=== PATIENT | female | born 1980 | race Hispanic/Latino ===

== ENCOUNTER 2018-10-18 18:29 | Emergency (ER) | payer OTHER ==
[2018-10-18 19:58] LABS: Absolute Lymphocytes (CBC) 2.8 K/uL (0.7-4.9); Basophils % 0.5 % (0-1.3); Eosinophils % 1.2 % (0-4.4); MPV 8.2 fL (7.6-11.3); Monocytes % 9.5 % (3.3-12.3); RBC Red Blood Cell Count 4.55 M/uL (3.86-4.86)
[2018-10-18 20:02] LABS: ALT/SGPT 38 U/L (12-78); AST/SGOT 10 U/L (15-37); Albumin 3.6 g/dL (3.4-5.0); Alkaline Phosphatase 83 U/L (45-117); BUN Blood Urea Nitrogen 15 mg/dL (7-18); Bicarbonate 30 mmol/L (21-32); Bilirubin Direct < 0.1 mg/dL (0-0.2); Bilirubin Total 0.3 mg/dL (0.2-1.0); Glucose Level 85 mg/dL (74-106); Lipase 161 U/L (73-393); Protein, Total 8.1 g/dL (6.4-8.2); Sodium Level 139 mmol/L (136-145)
[2018-10-18 20:10] LABS: Urine Blood 2+ (NEG); Urine Glucose NEGATIVE (NEG); Urine Protein NEGATIVE (NEG); Urine Specific Gravity 1.025 (1.005-1.030)
[2018-10-18 20:20] LABS: Urine Bacteria 20-50 /HPF (<20); Urine Culture Reflex Order REFLEXED; Urine RBC 20-50 /HPF (NONE SEEN)
--- NOTE | 2018-10-18 20:47 | RAD REPORT ---
EXAM DESCRIPTION: US - Abdomen Exam Limited - 10/18/2018 8:42 pm CLINICAL HISTORY: Abdominal pain COMPARISON: None. FINDINGS: No gallstones, sludge or other abnormalities within the gallbladder lumen. There is no wal l thickening or pericholecystic fluid. No common duct stone or biliary tree dilatation identified. IMPRESSION: Normal gallbladder and biliary tree ultrasound.
--- NOTE | 2018-10-18 21:09 | EDPHYS ---
Physician Documentation [facility] Name: Antionette Robertson Age: 38 yrs Sex: Female : 1980 Arrival Date: 10/18/2018 Time: 18:32 Bed 16 Private MD: ED Physician Thomas Coyne HPI: 10/18 18:50 This 38 yrs old Female presents to ER via Ambulatory with complaints of cp Abdominal Pain. 18:50 The patient presents with abdominal pain in the right upper quadrant. Onset: The cp symptoms/episode began/occurred this morning, intermittent. The symptoms do not radiate. 18:50 The symptoms are described as sharp. cp 18:50 Associated signs and symptoms: Pertinent negatives: anorexia, blood in stools, cp constipation, diarrhea, dysuria, fever, vomiting. Severity of pain: in the emergency department the pain has resolved and did so just prior to arrival. 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 - Social history:: Smoking status: Patient/guardian denies using tobacco. - Ebola Screening: : Patient negative for fever greater than or equal to 101.5 degrees Fahrenheit, and additional compatible Ebola Virus Disease symptoms Patient denies exposure to infectious person Patient denies travel to an Ebola-affected area in the 21 days before illness onset No symptoms or risks identified at this time. ROS: 19:00 Constitutional: Negative for body aches, chills, fever, poor PO intake. cp 19:00 Eyes: Negative for injury, pain, redness, and discharge. cp 19:00 ENT: Negative for drainage from ear(s), ear pain, sore throat, difficulty swallowing, difficulty handling secretions. 19:00 Cardiovascular: Negative for chest pain, edema, palpitations. 19:00 Respiratory: Negative for cough, shortness of breath, wheezing. 19:00 Abdomen/GI: Positive for abdominal pain, of the right upper quadrant, Negative for vomiting, diarrhea, constipation, anorexia, black/tarry stool, rectal bleeding. 19:00 Back: Negative for radiated pain. 19:00 : Negative for urinary symptoms. 19:00 All other systems are negative. Exam: 19:05 Constitutional: The patient appears in no acute distress, alert, awake, comfortable, cp non-diaphoretic, non-toxic, well developed, well nourished. 19:05 Head/Face: Normocephalic, atraumatic. cp 19:05 Eyes: Periorbital structures: appear normal, Conjunctiva: normal, no exudate, no injection, Sclera: no appreciated abnormality, Lids and lashes: appear normal, bilaterally. 19:05 ENT: External ear(s): are unremarkable, Nose: is normal, Mouth: Lips: moist, Oral mucosa: pink and intact, moist, Posterior pharynx: is normal, airway is patent, no erythema, no exudate. 19:05 Chest/axilla: Inspection: normal, Palpation: is normal, no crepitus, no tenderness. 19:05 Cardiovascular: Rate: normal, Rhythm: regular. 19:05 Respiratory: the patient does not display signs of respiratory distress, Respirations: normal, no use of accessory muscles, no retractions, no splinting, no tachypnea, labored breathing, is not present, Breath sounds: are clear throughout, no decreased breath sounds, no stridor, no wheezing. 19:05 Abdomen/GI: Inspection: abdomen appears normal, Bowel sounds: active, all quadrants, Palpation: soft, in all quadrants, rebound tenderness, is not appreciated, voluntary guarding, is not appreciated, involuntary guarding, is not appreciated, very mild tenderness to palpation RUQ. 19:05 Back: pain, is absent, ROM is normal. Vital Signs: 18:57 BP 124 / 90; Pulse 80; Resp 16; Temp 98.5(O); Pulse Ox 98% on R/A; Weight 83.91 kg; iw Height 5 ft. 4 in. (162.56 cm); Pain 7/10; 19:15 BP 125 / 85; Pulse 79; Resp 17 S; Pulse Ox 98% on R/A; cc3 20:37 BP 116 / 90; Pulse 74; Resp 17 S; Pulse Ox 98% on R/A; cc3 21:05 BP 119 / 73; Pulse 75; Resp 16 S; Pulse Ox 98% on R/A; cc3 18:57 Body Mass Index 31.75 (83.91 kg, 162.56 cm) iw MDM: 18:49 Patient medically screened. 10/18 18:45 Order name: Urine Microscopic Only; Complete Time: 21:03 10/18 21:03 Interpretation: Normal except: URBC 20-50; UBACT 20-50; SQEPI 5-10. cp 10/18 19:08 Order name: Basic Metabolic Panel; Complete Time: 21:03 cp 10/18 19:08 Order name: CBC with Diff; Complete Time: 21:03 cp 10/18 19:08 Order name: Creatinine for Radiology; Complete Time: 21:03 cp 10/18 19:08 Order name: Hepatic Function; Complete Time: 21:03 cp 10/18 19:08 Order name: Lipase; Complete Time: 21:03 cp 10/18 18:45 Order name: Urine Dipstick-Ancillary (obtain specimen); Complete Time: 19:34 cp 10/18 18:45 Order name: Urine Test (obtain specimen); Complete Time: 19:34 10/18 19:08 Order name: IV Saline Lock; Complete Time: 19:28 cp 10/18 19:08 Order name: Labs collected and sent; Complete Time: 19:28 cp 10/18 19:08 Order name: US Abdomen Limited: RUQ; Complete Time: 21:03 10/18 19:23 Order name: Urine Dipstick--Ancillary (enter results); Complete Time: 21:03 2 10/18 19:23 Order name: Urine --Ancillary (enter results); Complete Time: 21:03 [facility] 10/18 20:21 Order name: Urine Culture EDDE 10/18 19:08 Order name: NPO; Complete Time: 19:12 cp Administered Medications: No medications were administered Disposition: 10/19 07:36 Co-signature as Attending Physician, Thomas Coyne MD. rn Disposition: 10/18/18 21:09 Discharged to Home. Impression: Unspecified abdominal pain. - Condition is Stable. - Discharge Instructions: Abdominal Pain, Adult. - Prescriptions for Ibuprofen 800 mg Oral Tablet - take 1 tablet by ORAL route every 8 hours As needed take with food; 30 tablet. - Medication Reconciliation Form, Thank You Letter, Antibiotic Education, Prescription Opioid Use form. - Follow up: Private Physician; When: 2 - 3 days; Reason: Recheck today's complaints. - Problem is new. - Symptoms have improved. Signatures: Dispatcher [employer] Colleen Thao RN RN dm5 Caterina Guaman RN RN iw Nieto, Roman, MD MD rn Page, Corey, PA PA cp Corrections: (The following items were deleted from the chart) 10/18 21:18 21:09 10/18/2018 21:09 Discharged to Home. Impression: Unspecified abdominal pain. dm5 Condition is Stable. Forms are Medication Reconciliation Form, Thank You Letter, Antibiotic Education, Prescription Opioid Use. Follow up: Private Physician; When: 2 - 3 days; Reason: Recheck today's complaints. Problem is new. Symptoms have improved. cp
--- NOTE | 2018-10-18 21:09 | ER ---
Nurse's Notes [facility] Name: Antionette Robertson Age: 38 yrs Sex: Female : 1980 Arrival Date: 10/18/2018 Time: 18:32 Bed 16 Private MD: Diagnosis: Unspecified abdominal pain Presentation: 10/18 18:52 Presenting complaint: Patient states: RUQ pain since this morning, loose stool X 1-2 iw weeks, denies vomiting, denies urinary s/s. Transition of care: patient was not received from another setting of care. Onset of symptoms was October 18, 2018. Risk Assessment: Do you want to hurt yourself or someone else? Patient reports no desire to harm self or others. Initial Sepsis Screen: Does the patient meet any 2 criteria? No. Patient's initial sepsis screen is negative. Does the patient have a suspected source of infection? No. Patient's initial sepsis screen is negative. Care prior to arrival: None. 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 - Social history:: Smoking status: Patient/guardian denies using tobacco. - Ebola Screening: : Patient negative for fever greater than or equal to 101.5 degrees Fahrenheit, and additional compatible Ebola Virus Disease symptoms Patient denies exposure to infectious person Patient denies travel to an Ebola-affected area in the 21 days before illness onset No symptoms or risks identified at this time. Screenin:15 Abuse screen: Denies threats or abuse. Denies injuries from another. Nutritional cc3 screening: No deficits noted. Tuberculosis screening: No symptoms or risk factors identified. Fall Risk Ambulatory Aid- None/Bed Rest/Nurse Assist (0 pts). Gait- Normal/Bed Rest/Wheelchair (0 pts) Mental Status- Oriented to own ability (0 pts). Assessment: 19:15 Reassessment: Patient appears in no apparent distress at this time. Patient and/or cc3 family updated on plan of care and expected duration. Pain level reassessed. Patient is alert, oriented x 3, equal unlabored respirations, skin warm/dry/pink. Received this female patient from morning shift GAVIN Curry as a case of abdominal pain. No IV cannula in situ. General: Appears in no apparent distress. comfortable, Behavior is calm, cooperative, appropriate for age. Pain: Complains of pain in abdomen. Neuro: Level of Consciousness is awake, alert, obeys commands, Oriented to person, place, time, situation, Appropriate for age. Cardiovascular: Denies chest pain, Capillary refill < 3 seconds Patient's skin is warm and dry. Respiratory: Airway is patent Respiratory effort is even, unlabored, Respiratory pattern is regular, symmetrical. GI: Bowel sounds present X 4 quads. Abd is soft and non tender X 4 quads. : No signs and/or symptoms were reported regarding the genitourinary system. EENT: No signs and/or symptoms were reported regarding the EENT system. Derm: Skin is intact, is healthy with good turgor, Skin is pink, warm \T\ dry. normal. Musculoskeletal: Circulation, motion, and sensation intact. Range of motion: intact in all extremities. 20:15 Reassessment: Patient appears in no apparent distress at this time. Patient and/or cc3 family updated on plan of care and expected duration. Pain level reassessed. Patient is alert, oriented x 3, equal unlabored respirations, skin warm/dry/pink. Bedside ultrasound was just done by the technician telecommunication systems, awaiting result. 21:15 Reassessment: Patient appears in no apparent distress at this time. Patient and/or cc3 family updated on plan of care and expected duration. Pain level reassessed. Patient is alert, oriented x 3, equal unlabored respirations, skin warm/dry/pink. ALMAS Page discharged the patient home with prescription given. IV cannula removed and patient left ER vitally stable and ambulatory with her significant other. No valuables left in the patient's room. Patient denies pain at this time. Patient states feeling better. Patient states symptoms have improved. Vital Signs: 18:57 BP 124 / 90; Pulse 80; Resp 16; Temp 98.5(O); Pulse Ox 98% on R/A; Weight 83.91 kg; iw Height 5 ft. 4 in. (162.56 cm); Pain 7/10; 19:15 BP 125 / 85; Pulse 79; Resp 17 S; Pulse Ox 98% on R/A; cc3 20:37 BP 116 / 90; Pulse 74; Resp 17 S; Pulse Ox 98% on R/A; cc3 21:05 BP 119 / 73; Pulse 75; Resp 16 S; Pulse Ox 98% on R/A; cc3 18:57 Body Mass Index 31.75 (83.91 kg, 162.56 cm) ED Course: 18:32 Patient arrived in ED. as 18:43 Gregg Paredes PA is PHCP. cp 18:43 Thomas Coyne MD is Attending Physician. cp 18:54 Triage completed. iw 18:57 Arm band placed on. iw 19:12 Chris Ferraro, RN is Primary Nurse. ae4 19:15 Patient has correct armband on for positive identification. Bed in low position. Call cc3 light in reach. Side rails up X 1. Pulse ox on. NIBP on. 19:25 Inserted saline lock: 20 gauge in right antecubital area, using aseptic technique. cc3 Blood collected. 20:42 US Abdomen Limited: RUQ In Process Unspecified. EDMS 21:15 No provider procedures requiring assistance completed. IV discontinued, intact, cc3 bleeding controlled, No redness/swelling at site. Pressure dressing applied. Administered Medications: No medications were administered Outcome: 21:09 Discharge ordered by MD. cp 21:15 Discharged to home ambulatory, with significant other. cc3 21:15 Condition: stable 21:15 Discharge instructions given to patient, Instructed on discharge instructions, follow up and referral plans. medication usage, Demonstrated understanding of instructions, follow-up care, medications, Prescriptions given X 1. 21:18 Patient left the ED. dm5 Signatures: Dispatcher [employer] EDMD Colleen Diaz RN RN dm5 Betty Shukla Irene RN RN iw Gregg Paredes PA PA cp Inez Jackson cc3 Chris Ferraro, RN RN ae4
== END 2018-10-18 21:18 | disposition home or self-care (01) ==
LOC: ER 18:29
DX: R10.9 Unspecified abdominal pain (principal); Z88.6 Allergy status to analgesic agent; Z88.1 Allergy status to other antibiotic agents
CPT/HCPCS: 36415; 76705; 80048; 80076; 81003; 81015; 81025; 83690; 85025; 87086; 87088; 99284

== ENCOUNTER 2025-01-28 06:44 | Day surgery (SDC) | payer OTHER ==
[2025-01-26 16:20] LABS: Absolute Lymphocytes (CBC) 2.9 K/uL (0.7-4.9); Hematocrit 35.0 % (36.0-45.0); Hemoglobin 12.1 g/dL (12.0-15.0); MCH 29.2 pg (27.0-35.0); MCHC 34.4 g/dL (32.0-36.0); MCV 84.8 fL (80-100); MPV 7.8 fL (7.6-11.3); Nucleated RBC Absolute Count 0.0 (0-0); Nucleated Red Blood Cells % 0.1 % (0-0); RBC Red Blood Cell Count 4.13 M/uL (3.86-4.86); White Blood Count 8.40 thou/uL (4.3-10.9)
[2025-01-26 16:37] LABS: ALT/SGPT 27 U/L (13-56); AST/SGOT 13 U/L (15-37); Albumin 3.2 g/dL (3.4-5.0); Albumin/Globulin Ratio 0.8 (1.1-1.8); Alkaline Phosphatase 79 U/L (45-117); Anion Gap 7.8 mEq/L (5.0-15.0); BUN Blood Urea Nitrogen 15 mg/dL (7-18); Globulin 3.8 g/dL (2.3-3.5); Glucose Level 117 mg/dL (74-106); Lipase 47 U/L (13-75); Potassium 3.8 mEq/L (3.5-5.1)
[2025-01-26 16:39] LABS: Bilirubin Indirect, Calculated 0.0 mg/dL (0.2-0.8)
[2025-01-28] MEDS ORDERED: SUCCINYLCHOLINE 20 MG/ML (10 ML) IV ONE (08:17)
[2025-01-28] MEDS ORDERED: FENTANYL CITR 100 MCG/2 ML ONE (08:36)
--- NOTE | 2025-01-28 08:38 | P.BOP ---
Preoperative diagnosis: symptomatic cholelithiasis Postoperative diagnosis: same Primary procedure: LAparoscopic cholecystectomy Estimated blood loss: <10cc Specimen: gb Findings: as above. pt came with multiple small bruises periumbilical and RUq preop Anesthesia: General Complications: None Drain(s): Other Transferred to: Recovery Room Condition: Good
[2025-01-28] MEDS: HYDROMORPHONE HCL 1 MG/ML INJ ONE ×2 (09:07→09:27)
[2025-01-28] MEDS: FENTANYL CITR 100 MCG/2 ML ONE (09:18)
[2025-01-28] MEDS: HYDROCODONE/APAP 7.5/325 MG TAB ONE (10:17)
[2025-01-28 10:30] VITALS: BP 113/69; O2SAT 96
[2025-01-28 12:31] VITALS: TEMP 98.2
--- NOTE | 2025-01-28 12:54 | OP ---
Date of Procedure: 01/28/2025 Surgeon: Enrique Shukla MD Preoperative Diagnoses: Symptomatic cholelithiasis, right upper quadrant abdominal pain. Postoperative Diagnoses: Symptomatic cholelithiasis, right upper quadrant abdominal pain. Procedure: Laparoscopic cholecystectomy. Estimated Blood Loss: Less than 10 cc. Specimen: Gallbladder. Findings: As above. Patient has stones in the gallbladder, but we have also noticed when she came t his morning, there were some bruises on the deep umbilical region and also right upper quadrant. She does not know why they are there. It is not infected. There is no cellulitis present, but there is small hematoma even through the belly button itself, deep inside we can see that bruise. So, we are trying to keep our incisions away from that area. We did not see any obvious injury in that region. That should be investigated in the future. Complications: None. Indications: This is a case of a 44-year-old patient who came to us with the above diagnoses. Fully explained the benefits, alternatives, and risks of laparoscopic possible open cholecystectomy, which include, but not limited to, infection, bleeding, damage to adjacent structures, anesthesia complica tion, choledocholithiasis, bile leak, pancreatitis, UT, and even . She also understands this ma y not relieve any symptoms, she might need more than one surgical intervention. She understood and s igned a consent. Description Of Procedure: The patient was brought to the operating room, placed in supine position. Anesthesia was induced without complication. Abdominal area was prepped and draped in the usual sabina rile fashion. Marcaine 0.5% was injected for local anesthetic followed by sharp incision of the skin just above the umbilical area trying to stay away from the umbilicus. Incision was carried down to fascia, which was opened under direct vision. Peritoneum was encountered, opened under direct vision . Vicryl #1 placed inside of the fascia. Jaz trocar was carefully introduced. Pneumoperitoneum was obtained. I placed three more trocars, 5 mm each one of them, one in the epigastric area, two in the right upper quadrant using the same technique which consisted of local anesthetic, sharp incisio n of the skin, and introduction of the trocars under direct vision. This allowed me to put a grasper in the fundus of the gallbladder. There were multiple omental adhesions into the gallbladder. Sinc e she has a history of easy bruising, I just used the LigaSure to take those adhesions down to minimi ze the chance of bleeding. The fundus of the gallbladder was identified in the infundibulum. A gras per was placed inside and the gallbladder was retracted in the inferolateral fashion exposing the tri angle of Calot, obtaining critical view. Cystic duct and cystic artery were clearly isolated and paul ed circumferentially, and a connection between those and the gallbladder were clearly identified. I proceeded to ligate those by using at least three clips proximal, one clip distal, ligation in the mi ddle. Same was done with the cystic artery. No bile leak. No bleeding. The gallbladder was remove d from the liver using Bovie cauterizer and removed from abdominal cavity using an EndoCatch through the umbilical incision. Area was inspected once again. No bile leak. No bleeding. At that moment, I proceeded to remove the trocars under direct vision, deflated pneumoperitoneum. Closed the fascia with #1 Vicryl, irrigated subcutaneous tissue, closed that with 3-0 Monocryl and the skin in a subcu ticular fashion with 3-0 Monocryl and Steri-Strips on top. Sponge counts and instrument counts were correct. The patient tolerated the procedure well. The patient on her way to recovery in stable co ndition. PACO/MODL Voice ID: [id number] Report ID: [id number]
--- NOTE | 2025-01-28 12:54 | DS ---
Date of Discharge: 01/28/2025 Diagnoses: Right upper quadrant pain, symptomatic cholelithiasis. Procedure: Laparoscopic cholecystectomy. Condition: Stable. Disposition: Home. Activity: As tolerated. No heavy lifting. Discharge Instructions: Follow up in my office in 1 week. Call for appointment [phone]. Keep area dry for 48 hours, then may shower. Keep Steri-Strip intact. PACO/LUCIE Voice ID: [id number] Report ID: [id number]
[2025-01-28 22:43] LABS: Urine Specific Gravity/Preg 1.020 (1.005-1.030)
== END 2025-01-28 12:08 | disposition home or self-care (01) ==
LOC: OR 06:44
PROVIDERS: ATTEND Surgery
PROC: 0FT44ZZ Resection of Gallbladder, Percutaneous Endoscopic Approach (ICD-10-PCS; principal; 2025-01-28 07:30)
DX: K80.10 Calculus of gallbladder with chronic cholecystitis without obstruction (principal)
CPT/HCPCS: 85025; 80048; 36415; 81025; 80076; 88304; 83690; 47562; J3010 ×2; J1171 ×2; J0330